=== PATIENT | male | born 1975 | race Caucasian/White ===

== ENCOUNTER 2017-10-13 17:28 | Emergency (ER) | payer OTHER ==
--- NOTE | 2017-10-13 17:36 | ED.PDOC ---
History of Present Illness - General Chief Complaint: GI Problem Stated Complaint: epigastric pain Time Seen by Provider: 10/13/17 17:36 Information Source: patient Exam Limitations: no limitations - History of Present Illness Initial Comments: Brooks Hurtado 42 y/o male stated that he had been having burning/ sharp constant epigastric pain with nausea and sometimes yellow vomitus for the last 30 days and has GI appointment scheduled for 15 October 2017 in [place]. Has history of GERD.He was seen at [facility] in [place] 10 October had blood work,CXR done and was given Protonix IV and was prescribed Nexium. Had EGD last year but no abnormalities noted.No hematemesis/hematochezia.No weight loss or fever. Abdominal Pain Onset Location: epigastric Pain Radiation: no radiation Quality: burning, sharpness Timing/Duration: other - see hpi Improving Factors: nothing Worsening Factors: eating Associated Symptoms: other - see hpi Review of Systems - Review of Systems Constitutional: States: no symptoms reported EENTM: States: no symptoms reported Respiratory: States: no symptoms reported Cardiology: States: no symptoms reported Gastrointestinal/Abdominal: States: see HPI Genitourinary: States: no symptoms reported Skin: States: no symptoms reported Past Medical History (General) - Patient Medical History Hx Asthma: Yes Surgical History: cholecystectomy, other - c- spine; Family Medical History - Family History Father Hx Family Diabetes: Yes Mother Family History: No Known Physical Exam - Physical Exam General Appearance: Alert, Comfortable, No apparent distress Eyes, Ears, Nose, Throat Exam: normal ENT inspection Neck: full range of motion, supple, normal inspection Respiratory: lungs clear, normal breath sounds Cardiovascular/Chest: normal peripheral pulses, regular rate, rhythm, no murmur Peripheral Pulses: No deficit Gastrointestinal/Abdominal: soft, no organomegaly, tenderness - epigastrium no peritoneal signs Back Exam: no CVA tenderness, no vertebral tenderness Extremity: no pedal edema, no calf tenderness Neurologic: alert, oriented x 3 Progress - Progress Progress: 10/13/17 18:04 Vital Signs - 8 hr 10/13/17 17:35 Temperature 98.0 F Pulse Rate [ 62 left brachial] Respiratory 16 Rate Blood Pressure 150/106 [left brachial] O2 Sat by Pulse 99 Oximetry Departure - Departure Clinical Impression: Abdominal pain Qualifiers: Abdominal location: epigastric Qualified Code(s): R10.13 - Epigastric pain Time of Disposition: 18:34 Disposition: Discharge to Home or Self Care Condition: Fair Departure Forms: ED Discharge - Pt. Copy, Patient Portal Self Enrollment Instructions: Acid Reflux (Gastroesophageal Reflux Disease), Adult (DC), Ulcer and Gastritis Diet Referrals: Raulito Johnson MD [Primary Care Provider] - 1-2 Weeks Prescriptions: Chlordiazepoxide HCl-Clidinium [Librax] 1 cap PO BID #10 cap Sucralfate Suspension [Carafate Suspension] 1 gm PO ACHS #240 ml Home Medications: Ambulatory Orders Chlordiazepoxide HCl-Clidinium [Librax] 1 cap PO BID #10 cap 10/13/17 Sucralfate Suspension [Carafate Suspension] 1 gm PO ACHS #240 ml 10/13/17 Additional Instructions: FOLLOW UP APPOINTMENT WITH [facility] 16 October 2017
[2017-10-13 18:03] VITALS: TEMP 98
[2017-10-13] MEDS ORDERED: SUCRALFATE 1 GM/10 ML 1 GM UD PO ONE (18:04)
[2017-10-13] MEDS ORDERED: ALUM & MAG HYDROX-SIMETHICONE 30 ML, LIDOCAINE VISCOUS 2% 15 ML PO ONE ×2 (18:04)
[2017-10-13] MEDS ORDERED: PANTOPRAZOLE SODIUM IV 40 MG VIAL IV ONE (18:05)
[2017-10-13] MEDS ORDERED: HYOSCYAMINE SULFATE 0.5 MG/ML VIAL IV ONE (18:06)
[2017-10-13] MEDS ORDERED: LIDOCAINE HCL 2% (MOUTH-THROAT) 15 ML UD ONE (18:08)
[2017-10-13] MEDS ORDERED: ALUM & MAG HYDROX-SIMETHICONE 30 ML UD ONE (18:08)
[2017-10-13 18:50] VITALS: BP 182/69; O2SAT 95
== END 2017-10-13 18:51 | disposition home or self-care (01) ==
LOC: ER 17:28
DX: R10.13 Epigastric pain (principal)